=== PATIENT | female | born 1985 ===

== ENCOUNTER 2017-09-29 18:08 | Emergency (ER) | payer MEDICAID, OTHER ==
[2017-09-29 18:24] VITALS: BP 130/84; PULSE 75; RESP 20; TEMP 98.5; O2SAT 99
--- NOTE | 2017-09-29 19:57 | C.PDOC ---
History Of Present Illness 32 y/o female presents to the ED complaining of a sore throat since yesterday. Associated with voice hoarseness, pain on swallowing, and a dry cough. Denies any fever, chills, headache, or dizziness. Time Seen by Provider: 09/29/17 19:31 Chief Complaint (Nursing): ENT Problem History Per: Patient History/Exam Limitations: no limitations Onset/Duration Of Symptoms: Days (x2) Current Symptoms Are (Timing): Still Present Location Of Pain: Throat Past Medical History Reviewed: Historical Data, Nursing Documentation, Vital Signs Vital Signs: Last Vital Signs Temp 98.5 F 09/29/17 18:20 Pulse 75 09/29/17 18:20 Resp 20 09/29/17 18:20 BP 130/84 09/29/17 18:20 Pulse Ox 99 09/29/17 20:08 - Medical History PMH: Asthma Surgical History: Hernia Repair Family History: States: No Known Family Hx - Social History Hx Tobacco Use: Yes Hx Alcohol Use: Yes Hx Substance Use: No - Immunization History Hx Tetanus Toxoid Vaccination: No Hx Influenza Vaccination: No Hx Pneumococcal Vaccination: No Review Of Systems Except As Marked, All Systems Reviewed And Found Negative. Constitutional: Negative for: Fever, Chills ENT: Positive for: Throat Pain, Other (Painful swallowing) Respiratory: Positive for: Cough. Negative for: Shortness of Breath, Sputum Neurological: Negative for: Headache, Dizziness Physical Exam - Physical Exam Appears: Non-toxic, No Acute Distress Skin: Normal Color, Warm, Dry Head: Atraumatic, Normacephalic Eye(s): bilateral: Normal Inspection, PERRL, EOMI Ear(s): Bilateral: Normal Nose: Normal Oral Mucosa: Moist Throat: No Exudate, Other (mildly hyperemic pharynx, and tonsillar enlargement) Neck: Normal ROM, Supple Cardiovascular: Rhythm Regular, No Murmur Respiratory: Normal Breath Sounds, No Accessory Muscle Use, No Rhonchi, No Wheezing Neurological/Psych: Oriented x3, Normal Speech ED Course And Treatment O2 Sat by Pulse Oximetry: 99 (RA) Pulse Ox Interpretation: Normal Progress Note: Discussed w/ patient diagnosis of Laryngitis/URI. Patient is medically stable in no resp distress, speaking in full sentences. Will discharge home with rx for Tessalon Perles, Zyrtec, and Motrin. Advised to follow up with PMD/the clinic in 1-2 days Disposition Counseled Patient/Family Regarding: Diagnosis, Need For Followup, Rx Given - Disposition Referrals: [facility] [Outside] Disposition: HOME/ ROUTINE Disposition Time: 19:50 Condition: STABLE Additional Instructions: Increase PO fluids Take meds as directed Gargle with warm salt water/ Take fluids Use chloraseptic spray Return to ER if worse Prescriptions: Benzonatate [Tessalon Perles] 100 mg PO TID #20 sgl Cetirizine HCl [Zyrtec] 10 mg PO DAILY #20 capsule Ibuprofen [Motrin] 600 mg PO Q6H #20 tab Instructions: Laryngitis (DC) Forms: [employer] (Uruguayan) - POA Present On Arrival: None - Clinical Impression Clinical Impression: Laryngitis, Upper respiratory infection - PA / PRINCIPAL GIFTS OFFICER / Resident Statement MD/DO has reviewed & agrees with the documentation as recorded. - Scribe Statement The provider has reviewed the documentation as recorded by the Scribe (Jaqueline Velazquez) All medical record entries made by the Scribe were at my direction and personally dictated by me. I have reviewed the chart and agree that the record accurately reflects my personal performance of the history, physical exam, medical decision making, and the department course for this patient. I have also personally directed, reviewed, and agree with the discharge instructions and disposition.
== END 2017-09-29 20:07 | disposition home or self-care (01) ==
LOC: C.ER 18:08
DX: J04.0 Acute laryngitis (principal)

== ENCOUNTER 2017-10-30 18:22 | Emergency (ER) | payer MEDICAID, OTHER ==
[2017-10-30 18:31] VITALS: RESP 20
[2017-10-30] MEDS ORDERED: Albuterol 0.083% Inhal Sol (2.5 mg/3 mL) UD INH STA ×2 (19:07→21:01)
[2017-10-30] MEDS ORDERED: Albuterol-Ipratrop 3 mg / 0.5 (3 ml) UD IH STA (19:07)
[2017-10-30] MEDS ORDERED: Albuterol-Ipratrop 3 mg / 0.5 (3 ml) UD ONE ×2 (19:14→21:01)
[2017-10-30] MEDS ORDERED: Albuterol 0.083% Inhal Sol (2.5 mg/3 mL) UD ONE (19:15)
--- NOTE | 2017-10-30 19:38 | C.PDOC ---
History Of Present Illness 32-year-old female, presents to the emergency department with complaintsof shortness of breath and wheezing for the past week. Patient notes soreness in chest, but denies any pain or fever. Patient has a Hx of asthma, but was unable to have access to a pump at home. Time Seen by Provider: 10/30/17 18:49 Chief Complaint (Nursing): Shortness Of Breath History Per: Patient History/Exam Limitations: no limitations Onset/Duration Of Symptoms: Days Past Medical History Reviewed: Historical Data, Nursing Documentation, Vital Signs Vital Signs: Last Vital Signs Temp 97.9 F 10/30/17 21:24 Pulse 102 H 10/30/17 21:24 Resp 20 10/30/17 21:24 BP 148/92 H 10/30/17 21:24 Pulse Ox 99 10/30/17 21:24 - Medical History PMH: Asthma Surgical History: Hernia Repair Family History: States: No Known Family Hx - Social History Hx Tobacco Use: Yes Hx Alcohol Use: Yes Hx Substance Use: No - Immunization History Hx Tetanus Toxoid Vaccination: No Hx Influenza Vaccination: No Hx Pneumococcal Vaccination: No Review Of Systems Constitutional: Negative for: Fever Cardiovascular: Negative for: Chest Pain, Palpitations Respiratory: Positive for: Shortness of Breath, Wheezing Neurological: Negative for: Headache, Dizziness Physical Exam - Physical Exam Appears: Non-toxic, No Acute Distress Skin: Normal Color, Warm, Dry, No Rash Head: Normacephalic Eye(s): bilateral: PERRL Nose: Normal Oral Mucosa: Moist Neck: Normal ROM Chest: Symmetrical Cardiovascular: Rhythm Regular, No Murmur Respiratory: No Decreased Breath Sounds, No Accessory Muscle Use, Wheezing ( diffuse, expiratory) Extremity: Normal ROM, No Deformity, No Swelling Neurological/Psych: Oriented x3, Normal Speech ED Course And Treatment O2 Sat by Pulse Oximetry: 100 (RA) Pulse Ox Interpretation: Normal - Radiology CXR: Interpreted by Me CXR Interpretation: Yes: No Acute Disease Medical Decision Making Medical Decision Making: Chest XR, Prednisone, Albuterol neb x 2, Duoneb x 1, Zithromax ordered. On re- evaluation patient feels better and is stable to be d/c home with PMD follow up. Disposition - Disposition Referrals: Abhishek Frances MD [Staff Provider] - Disposition: HOME/ ROUTINE Disposition Time: 21:10 Condition: IMPROVED Additional Instructions: Follow up with PMD within 1-2 days. Return to ED if feel worse. Prescriptions: Brompheniramine/Pseudoephed/Dm [Bromfed Dm Cough 118 ml] 10 ml PO Q4 #300 ml predniSONE [predniSONE Tab] 2 tab PO DAILY #8 tab Albuterol Sulfate [Proair Hfa] 1 puff IH Q6 PRN #1 inh PRN Reason: Cough Azithromycin [Zithromax] 250 mg PO DAILY #4 tab Instructions: Acute Bronchitis, Adult (DC) Forms: [employer] (Frisian) - Clinical Impression Clinical Impression: Bronchitis - Scribe Statement The provider has reviewed the documentation as recorded by the Scribe (Ami Mojica) All medical record entries made by the Scribe were at my direction and personally dictated by me. I have reviewed the chart and agree that the record accurately reflects my personal performance of the history, physical exam, medical decision making, and the department course for this patient. I have also personally directed, reviewed, and agree with the discharge instructions and disposition.
[2017-10-30 21:25] VITALS: BP 148/92; PULSE 102; TEMP 97.9
[2017-10-31 07:24] VITALS: O2SAT 100
--- NOTE | 2017-10-31 11:22 | RAD ---
HISTORY: cough/wheezing COMPARISON: No prior. TECHNIQUE: Chest PA and lateral FINDINGS: LUNGS: The interstitial markings are slightly increased and coarsened with a few scattered peribronchial cuffing changes. Findings may represent sequela of reactive/inflammatory airway disease or viral illness. PLEURA: No significant pleural effusion identified. No pneumothorax apparent. CARDIOVASCULAR: Normal. OSSEOUS STRUCTURES: No significant abnormalities. VISUALIZED UPPER ABDOMEN: Normal. OTHER FINDINGS: None. IMPRESSION: The interstitial markings are slightly increased and coarsened with a few scattered peribronchial cuffing changes. Findings may represent sequela of reactive/inflammatory airway disease or viral illness.
== END 2017-10-30 21:32 | disposition home or self-care (01) ==
LOC: C.ER 18:22
DX: J40 Bronchitis, not specified as acute or chronic (principal)

== ENCOUNTER 2018-02-12 17:47 | Emergency (ER) | payer SELFPAY ==
[2018-02-12 18:46] VITALS: BMI 33.6
[2018-02-12 18:53] VITALS: RESP 20
[2018-02-12] MEDS ORDERED: Sodium Chloride 0.9% 1,000 ML IV ONE (19:37)
[2018-02-12 19:44] LABS: SQUAMOUS EPITHIAL < 1 /hpf (0-5); URINE BILIRUBIN NEGATIVE (NEGATIVE); URINE BLOOD NEGATIVE (NEGATIVE); URINE CLARITY Clear (Clear); URINE COLOR Yellow (YELLOW); URINE GLUCOSE (UA) NORMAL (Normal); URINE LEUKOCYTE ESTERASE NEG Leu/uL (Negative); URINE PROTEIN NEGATIVE (NEGATIVE); URINE UROBILINOGEN NORMAL mg/dL (0.2-1.0)
--- NOTE | 2018-02-12 19:55 | C.PDOC ---
History Of Present Illness 32 yo female w/o significant PMHx come in for evaluation of vaginal bleeding developed for past 15 days. Pt reports, LNMP started 01/29/18 and has been bleeding since. Pt admits, before that had menstrual period was on 12/23/17 and also was bleeding for 3 weeks with one week of non-bleeding period. Pt admits, noted to be irregular for past few months. Pt reports, for past few days was also feeling dizzy, lightheaded. Otherwise, pt denies use BCP, denies fever, chills, headache, sore throat, CP, SOB, palpitation, abd. pain, N/V/D, back pain , denies UTI sx. Pt denies previous [employer] ds. Ambulate to Ed for evaluation, not in any apparent distress. Time Seen by Provider: 02/12/18 19:22 Chief Complaint (Nursing): Female Genitourinary History Per: Patient Past Medical History Reviewed: Historical Data, Nursing Documentation, Vital Signs Vital Signs: Last Vital Signs Temp 98.1 F 02/12/18 18:47 Pulse 91 H 02/12/18 18:47 Resp 20 02/12/18 18:47 BP 125/85 02/12/18 18:47 Pulse Ox 99 02/12/18 19:56 - Medical History PMH: Asthma Surgical History: Hernia Repair Family History: States: No Known Family Hx - Social History Hx Tobacco Use: Yes Hx Alcohol Use: No Hx Substance Use: No - Immunization History Hx Tetanus Toxoid Vaccination: No Hx Influenza Vaccination: No Hx Pneumococcal Vaccination: No Review Of Systems Except As Marked, All Systems Reviewed And Found Negative. Constitutional: Negative for: Fever, Chills Eyes: Negative for: Vision Change ENT: Negative for: Throat Pain Cardiovascular: Positive for: Light Headedness. Negative for: Chest Pain, Palpitations Respiratory: Negative for: Cough, Shortness of Breath, Wheezing Gastrointestinal: Negative for: Nausea, Vomiting, Abdominal Pain, Diarrhea Genitourinary: Positive for: Vaginal Bleeding. Negative for: Dysuria Neurological: Positive for: Dizziness. Negative for: Weakness, Numbness, Altered Mental Status, Headache Physical Exam - Physical Exam Appears: Well, Non-toxic, No Acute Distress Skin: Normal Color, Warm, Dry, No Rash Head: Atraumatic, Normacephalic Eye(s): bilateral: PERRL Nose: No Flaring, No Discharge Oral Mucosa: Moist Throat: No Erythema, No Drooling Neck: Normal ROM, Trachea Midline, Supple Cardiovascular: Rhythm Regular, No Murmur, No JVD, Other ((-) carotid bruits B/L ) Respiratory: No Decreased Breath Sounds, No Accessory Muscle Use, No Stridor, No Wheezing Gastrointestinal/Abdominal: Soft, No Tenderness, No Distention, No Guarding, No Rebound Back: No CVA Tenderness Extremity: Normal ROM, No Deformity, No Swelling Neurological/Psych: Oriented x3, Normal Speech ED Course And Treatment - Laboratory Results Result Diagrams: 02/12/18 20:28 02/12/18 20:28 Lab Interpretation: No Acute Changes Urine POC: Negative O2 Sat by Pulse Oximetry: 99 Pulse Ox Interpretation: Normal - CT Scan/US Transvaginal US Other Rad Studies (CT/US): Interpreted By Me, Read By Radiologist CT/US Interpretation: small B/L ovarian cysts. no acute findings Progress Note: On re-eval, pt is afebrile, hemodynamicaly stable. NOn-toxic. [place] Po well in ED. Ambulatory in ED with stable gait. PulsEOx 99% RA. ENT: no acute findings. uvula midline, no edmea. Neck: Supple, (-) JVD, (-) carotid bruits B/L. Lungs: CTA B/L, BS equal B/L. Abd: benign, (-) guarding, ( -) rebound. back: (-) CVA tenderness. neuorlogicaly intact. Blood work review and appeas without acute abnormlaities, mild lekocytosis, nos. NO sign of dehydration, no anemia. US results review- no acute abnormalities. Pt has clinical findings c/w DUB. Pt advised. REf. to follow up with PMD, [employer] in 2 days for re-eval. return to ED if any worsening or new changes. Disposition Counseled Patient/Family Regarding: Studies Performed, Diagnosis, Need For Followup - Disposition Referrals: [facility] [Outside] [facility] [Outside] Disposition: HOME/ ROUTINE Disposition Time: 21:48 Condition: STABLE Additional Instructions: Encourage fluids Follow up with PMD, [employer] in 2-3 days for re-evaluation. Return to ED if nay worsening or new changes. Instructions: Heavy Periods Forms: [employer] (Namibian) - Clinical Impression Clinical Impression: DUB (dysfunctional uterine bleeding)
[2018-02-12 20:32] LABS: BASO # 0.1 K/uL (0.0-0.2); BASO % 0.4 % (0.0-2.0); EOS # 0.1 K/uL (0.0-0.7); EOS % 0.8 % (0.0-4.0); HEMOGLOBIN 12.1 g/dL (11.0-16.0); LYMPH % 20.9 % (20.0-40.0); MEAN CELL VOLUME 87.2 fL (81.0-99.0); MEAN CORPUSCULAR HEMOGLOBIN 29.7 pg (27.0-31.0); MEAN PLATELET VOLUME 8.8 fL (7.2-11.7); MONO # 0.7 K/uL (0.0-0.8); MONO % 4.9 % (0.0-10.0); NEUT # 10.4 K/uL (1.8-7.0); RBC 4.09 Mil/uL (3.80-5.20); RED CELL DISTRIBUTION WIDTH 13.8 % (11.5-14.5); WHITE BLOOD COUNT 14.2 K/uL (4.8-10.8)
[2018-02-12 20:41] LABS: PROTHROMBIN TIME 10.5 SECONDS (9.7-12.2)
[2018-02-12 20:45] LABS: ALB/GLOB RATIO 1.3 (1.0-2.1); ALBUMIN 4.4 g/dL (3.5-5.0); ALT/SGPT 45 U/L (9-52); AST/SGOT 30 U/L (14-36); BLOOD UREA NITROGEN 18 mg/dL (7-17); CALCIUM 9.5 mg/dl (8.6-10.4); GFR AFRICAN-AMERICAN > 60; GFR NON-AFRICAN AMERICAN > 60
[2018-02-12 22:12] VITALS: BP 99/60; PULSE 74; TEMP 97.9; O2SAT 98
--- NOTE | 2018-02-13 20:53 | US ---
Date of service: 02/12/2018 HISTORY: DUB, pain COMPARISON: None available. TECHNIQUE: Transabdominal and endovaginal ultrasound examination of the pelvis was obtained. FINDINGS: UTERUS: Measures 6.6 x 3.4 x 4.4 cm. Normal in size and appearance. No fibroid or other mass lesion seen. There are 2 cystic lesions seen at the uterine cervix with the largest cyst measures 1.7 centimeter may represent nabothian cyst. ENDOMETRIUM: Measures 9.1 mm in diameter. This suspicious for endometrial polyp measures 0.5 x 0.5 x 0.6 centimeter. CERVIX: No cervical abnormality identified. RIGHT OVARY: Measures 4 x 2.1 x 3.85 cm. No solid mass. Normal flow. There are 2 cysts lesions seen at the right adnexa with the largest cyst measures 3.4 x 1 x 2.8 centimeter. LEFT OVARY: Measures 3.4 x 1.6 x 3.1 cm. No solid mass. Normal flow. There is a cyst seen at the left adnexa measures 1.6 x 0.8 x 1.3 centimeter. FREE FLUID: No significant free fluid noted. OTHER FINDINGS: None. IMPRESSION: Suspicious for endometrial polyp measures 0.5 centimeter. Two cervical cysts. Bilateral adnexal cysts larger on the right, the largest cyst measures 3.4 centimeter. Follow-up reassessment is suggested. Preliminary report was submitted by virtual Radiology.
== END 2018-02-12 22:11 | disposition home or self-care (01) ==
LOC: C.ER 17:47
DX: N93.8 Other specified abnormal uterine and vaginal bleeding (principal); Z72.0 Tobacco use
CPT/HCPCS: 76830; 76856; 80053; 81001; 85025; 85610; 85730; 87086; 96360; 99285; J7030

== ENCOUNTER 2018-05-17 02:47 | Emergency (ER) | payer OTHER ==
[2018-05-17 02:49] VITALS: BMI 33.6
[2018-05-17] MEDS ORDERED: Albuterol-Ipratrop 3 mg / 0.5 (3 ml) UD INH STA ×2 (03:14→05:07)
--- NOTE | 2018-05-17 03:19 | C.PDOC ---
History Of Present Illness 33 year old female presents to the ED complaining of dry cough for 2 weeks and for the last 3 days with subjective fever, myalgias, headache, sore throat, and difficulty breathing. Reports taking Ibuprofen with minimal relief. Denies taking flu vaccination or smoking history.. Denies any ear pain, nasal congestion, n/v/d. no intubations, max pf unknown. Time Seen by Provider: 05/17/18 02:59 Chief Complaint (Nursing): Flu-like Symptoms History Per: Patient History/Exam Limitations: no limitations Onset/Duration Of Symptoms: Days (2 weeks ) Location Of Pain: Throat, Diffuse Myalgias, Headache Sick Contacts (Context): None Associated Symptoms: Fever, Sore Throat, Cough, Myalgias. denies: Nasal Congestion, Nausea, Vomiting, Diarrhea Ear Symptoms: Bilateral: None Recent travel outside of the [place]: No Past Medical History Reviewed: Historical Data, Nursing Documentation, Vital Signs Vital Signs: Last Vital Signs Temp 97.6 F 05/17/18 02:56 Pulse 110 H 05/17/18 02:56 Resp 18 05/17/18 02:56 BP 153/95 H 05/17/18 02:56 Pulse Ox 98 05/17/18 02:56 - Medical History PMH: Asthma Surgical History: Hernia Repair Family History: States: No Known Family Hx - Social History Hx Tobacco Use: Yes Hx Alcohol Use: Yes Hx Substance Use: No - Immunization History Hx Tetanus Toxoid Vaccination: No Hx Influenza Vaccination: No Hx Pneumococcal Vaccination: No Review Of Systems Constitutional: Positive for: Fever, Chills Eyes: Positive for: Pain ENT: Positive for: Throat Pain. Negative for: Ear Pain, Nose Congestion, Mouth Pain, Throat Swelling Cardiovascular: Negative for: Chest Pain, Palpitations Respiratory: Positive for: Cough, Shortness of Breath, Wheezing Gastrointestinal: Negative for: Nausea, Vomiting, Abdominal Pain, Diarrhea Skin: Negative for: Rash Neurological: Positive for: Headache. Negative for: Weakness, Numbness Psych: Negative for: Anxiety Physical Exam - Physical Exam Appears: Non-toxic, Other (appears uncomfortable) Skin: Warm, Dry, No Rash Head: Atraumatic, Normacephalic Eye(s): bilateral: Normal Inspection Ear(s): Bilateral: Normal Nose: No Discharge Oral Mucosa: Moist Throat: No Erythema, Other (white patch to right tonsil, midly enlarged) Neck: Normal ROM, Supple Lymphatic: Adenopathy (submandibular adenopathy) Chest: Symmetrical Cardiovascular: Rhythm Regular, No Murmur Respiratory: Normal Breath Sounds, No Decreased Breath Sounds, No Rales, No Rhonchi, Wheezing (scattered expiratory), Other (dry hacking cough) Gastrointestinal/Abdominal: Bowel Sounds, Soft, No Tenderness Back: No CVA Tenderness Extremity: Normal ROM Neurological/Psych: Oriented x3, Normal Speech Gait: Steady ED Course And Treatment - Laboratory Results Result Diagrams: 05/17/18 05:41 05/17/18 05:41 O2 Sat by Pulse Oximetry: 98 (RA) Pulse Ox Interpretation: Normal Medical Decision Making Medical Decision Making: Plan - CXR - Tylenol 975 mg PO - Rapid Strep Test, influenza - Nebulizer Treatment iv hydration , re-eval 0504 cxr reviewed, right sided pna noted, bc and labs ordered, antibiotics ordered; pt still wheezing. 2nd neb ordered. pf 260 before first neb tx. [address] Stevens, will admit to his service. Disposition Discussed With : Hayes Stevens Doctor Will See Patient In The: Hospital - Disposition Disposition: HOSPITALIZED Disposition Time: 05:21 Condition: STABLE - Clinical Impression Clinical Impression: Pneumonia, Acute asthma exacerbation - PA / AOC AADC OPERATIONS STAFF OFFICER / Resident Statement MD/DO has reviewed & agrees with the documentation as recorded. - Scribe Statement The provider has reviewed the documentation as recorded by the Scribe Glenys Guillermo All medical record entries made by the Scribe were at my direction and personally dictated by me. I have reviewed the chart and agree that the record accurately reflects my personal performance of the history, physical exam, medical decision making, and the department course for this patient. I have also personally directed, reviewed, and agree with the discharge instructions and disposition.
[2018-05-17] MEDS ORDERED: Sodium Chloride 0.9% 1,000 ML IV ONE (03:32)
[2018-05-17] MEDS ORDERED: Albuterol-Ipratrop 3 mg / 0.5 (3 ml) UD ONE ×3 (03:49→08:29)
[2018-05-17 04:17] LABS: INFLUENZA A B NEGATIVE FOR FLU A/B (NEGATIVE)
[2018-05-17] MEDS ORDERED: Azithromycin 500mg/250ML NS 500 MG/250 ML BAG IV STA (05:05)
[2018-05-17] MEDS ORDERED: cefTRIAXone IV 1 gm in Dextros 50 ML IV STA (05:05)
[2018-05-17] MEDS ORDERED: cefTRIAXone 1 gm 1 GM/100 ML BAG IVPB ONE (05:33)
[2018-05-17] MEDS ORDERED: Azithromycin 500mg/250ML NS 500 MG/250 ML BAG IVPB ONE (05:33)
[2018-05-17 05:46] LABS: BASO % 0.3 % (0.0-2.0); EOS % 0.1 % (0.0-4.0); HEMOGLOBIN 10.4 g/dL (11.0-16.0); LYMPH # 1.1 K/uL (1.0-4.3); LYMPH % 12.2 % (20.0-40.0); MEAN CORPUSCULAR HEMOGLOBIN 26.9 pg (27.0-31.0); MEAN CORPUSCULAR HGB CONC 32.4 g/dL (33.0-37.0); MEAN PLATELET VOLUME 8.9 fL (7.2-11.7); MONO # 0.5 K/uL (0.0-0.8); MONO % 5.6 % (0.0-10.0); NEUT # 7.5 K/uL (1.8-7.0); NEUT % 81.8 % (50.0-75.0); RBC 3.85 Mil/uL (3.80-5.20); RED CELL DISTRIBUTION WIDTH 14.6 % (11.5-14.5); WHITE BLOOD COUNT 9.2 K/uL (4.8-10.8)
[2018-05-17 06:15] LABS: ALB/GLOB RATIO 1.1 (1.0-2.1); ALBUMIN 3.5 g/dL (3.5-5.0); ALT/SGPT 26 U/L (9-52); AST/SGOT 21 U/L (14-36); BLOOD UREA NITROGEN 10 mg/dL (7-17); CALCIUM 7.8 mg/dl (8.6-10.4); GFR NON-AFRICAN AMERICAN > 60
[2018-05-17] MEDS ORDERED: Albuterol HFA 90 mcg/actuation (8 g) INH STA (08:14)
--- NOTE | 2018-05-17 08:30 | CP.PCM.HP ---
History of Present Illness - History of Present Illness History of Present Illness: H&P for hospitalist service CC: cough and shortness of breath HPI: 33 year old female with PMHx of asthma presents to ED complaining of shortness of breath that began 3 days ago and wheezing that began last night. Patient also reports a dry cough for the past 2 weeks. Cough worsened in the last 3 days. Patient states she tried advil, theraflu, nyquil and her albuterol inhaler at home without relief. Associated symptoms include subjective fever, diaphoresis, headache, lightheadedness, and sore throat. Patient denies PMHx: Asthma PSHx: hernia repair at 10 years old Meds: albuterol inhaler Allergies: loratadine-itching FamHx: father-asthma; mother- HTN, hyperthyroid, Crohn's disease SocHx: Smokes 1 cigarette per month, drinks wine socially, denies drugs. 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 PMD: none Review of Systems: -Gen: + fever, No chills, + headache, No lethargy, No weakness. -HEENT: No dizziness, No change in vision, No change in hearing, + sore throat, No dysphagia, No nasal congestion, No mucous. -Cardio: No chest pain, No palpitations, No lower extremity edema, No orthopnea. -Resp: + cough, +dyspnea, No hemoptysis, + wheezing, No pain on inspiration. -GI: No abdominal pain, No nausea/vomiting, No diarrhea/constipation, No hematochezia, No hematemesis. -: No dysuria, No urinary freq, No incontinence, No hematuria, No change in urinary stream. -MSK: No back pain, No muscle weakness, No radiating pain. -Skin: No itching, No rash, No lesions. -Neuro: No confusion, No numbness, No tingling, No focal weakness, No radicular pain, No syncope. -Psych: No anxiety, No depression, No H/I, No S/I, No hallucinations. Present on Admission - Present on Admission Any Indicators Present on Admission: No Past Patient History - Past Social History Smoking Status: Light Smoker < 10 Cigarettes Daily - PULMONARY Hx Asthma: Yes - PSYCHIATRIC Hx Substance Use: No - SURGICAL HISTORY Hx Surgeries: Yes Hx Herniorrhaphy: Yes - ANESTHESIA Hx Anesthesia: Yes Hx Anesthesia Reactions: No Meds Allergies/Adverse Reactions: Allergies Allergy/AdvReac Type Severity Reaction Status Date / Time loratadine [From Claritin] Allergy RASH Verified 05/17/18 02:58 nut - unspecified Allergy SWELLING Verified 05/17/18 02:58 shellfish derived Allergy ANAPHYLAXIS Verified 05/17/18 02:58 berries Allergy SWELLING Uncoded 05/17/18 02:58 Physical Exam - Constitutional Appears: No Acute Distress - Head Exam Head Exam: ATRAUMATIC, NORMOCEPHALIC - Eye Exam Eye Exam: EOMI, Normal appearance, PERRL - ENT Exam ENT Exam: Mucous Membranes Moist - Neck Exam Neck exam: Positive for: Full Rom, Normal Inspection - Respiratory Exam Respiratory Exam: Rales (R base). absent: Accessory Muscle Use, Clear to Auscultation Bilateral, Rhonchi, Wheezes, Respiratory Distress - Cardiovascular Exam Cardiovascular Exam: RRR, +S1, +S2 - GI/Abdominal Exam GI & Abdominal Exam: Normal Bowel Sounds, Soft. absent: Guarding, Rebound, Tenderness - Extremities Exam Extremities exam: Positive for: full ROM, normal capillary refill, normal inspection, pedal pulses present. Negative for: joint swelling, pedal edema, tenderness - Neurological Exam Neurological exam: Alert, CN II-XII Intact, Oriented x3 - Psychiatric Exam Psychiatric exam: Normal Affect, Normal Mood - Skin Skin Exam: Diaphoretic, Intact, Normal Color, Warm Results - Vital Signs Recent Vital Signs: Last Vital Signs Temp 98.6 F 05/17/18 06:46 Pulse 113 H 05/17/18 06:46 Resp 20 05/17/18 06:46 BP 125/83 05/17/18 06:46 Pulse Ox 98 05/17/18 06:49 - Labs Result Diagrams: 05/17/18 05:41 05/17/18 05:41 Labs: Laboratory Results - last 24 hr 05/17/18 05/17/18 05/17/18 04:06 05:41 05:41 WBC 9.2 RBC 3.85 Hgb 10.4 L Hct 31.9 L MCV 83.0 D MCH 26.9 L MCHC 32.4 L RDW 14.6 H Plt Count 256 MPV 8.9 Neut % (Auto) 81.8 H Lymph % (Auto) 12.2 L [place] % (Auto) 5.6 Eos % (Auto) 0.1 Baso % (Auto) 0.3 Neut # (Auto) 7.5 H Lymph # (Auto) 1.1 [place] # (Auto) 0.5 Eos # (Auto) 0.0 Baso # (Auto) 0.0 Sodium 136 Potassium 3.7 Chloride 107 Carbon Dioxide 21 L Anion Gap 12 BUN 10 Creatinine 0.5 L Est GFR ( Amer) > 60 Est GFR (Non-Af Amer) > 60 Random Glucose 113 H Calcium 7.8 L Total Bilirubin 0.2 AST 21 ALT 26 Alkaline Phosphatase 62 Total Protein 6.5 Albumin 3.5 D Globulin 3.1 Albumin/Globulin Ratio 1.1 Influenza Typ A,B (EIA) Negative for flu a/b Grp A Beta Strep Ag Negative Assessment & Plan - Assessment and Plan (Free Text) Plan: 32 year old female with PMHx of asthma admitted for RML pneumonia. Community acquired pneumonia -CXR: RML infiltrate -PSI score=31 based on age, therefore 0.6% mortality risk. -Patient may be treated outpatient.
[2018-05-17 09:14] VITALS: BP 127/84; PULSE 106; RESP 16; TEMP 98.9; O2SAT 99
--- NOTE | 2018-05-17 09:43 | RAD ---
Date of service: 05/17/2018 HISTORY: cough wheezing COMPARISON: No prior. TECHNIQUE: Chest PA and lateral FINDINGS: LUNGS: Dense focal opacification seen projecting over the right heart border on the frontal view extending into the right mid lung zone concerning for underlying infiltrate. Correlation with chest CT may be helpful. In addition, post treatment interval follow-up exam maybe helpful to ensure resolution of infiltrate and to exclude additional etiologies such as underlying lesion. PLEURA: No significant pleural effusion identified. No pneumothorax apparent. CARDIOVASCULAR: No aortic atherosclerotic calcification present. Normal cardiac size. OSSEOUS STRUCTURES: No significant abnormalities. VISUALIZED UPPER ABDOMEN: Normal. OTHER FINDINGS: None. IMPRESSION: Dense focal opacification seen projecting over the right heart border on the frontal view extending into the right mid lung zone concerning for underlying infiltrate. Correlation with chest CT may be helpful. In addition, post treatment interval follow-up exam maybe helpful to ensure resolution of infiltrate and to exclude additional etiologies such as underlying lesion. This case was put into the PA review folder for follow-up.
--- NOTE | 2018-05-17 11:56 | CP.PCM.DIS ---
Provider - Provider Date of Admission: 05/17/18 05:20 Attending physician: Hayes Stevens MD Primary care physician: none Consults: none Time Spent in preparation of Discharge (in minutes): 30 Diagnosis - Discharge Diagnosis (1) Pneumonia Status: Acute Hospital Course - Lab Results Lab Results: Most Recent Lab Values WBC 9.2 K/uL (4.8-10.8) 05/17/18 05:41 RBC 3.85 Mil/uL (3.80-5.20) 05/17/18 05:41 Hgb 10.4 g/dL (11.0-16.0) L 05/17/18 05:41 Hct 31.9 % (34.0-47.0) L 05/17/18 05:41 MCV 83.0 fL (81.0-99.0) D 05/17/18 05:41 MCH 26.9 pg (27.0-31.0) L 05/17/18 05:41 MCHC 32.4 g/dL (33.0-37.0) L 05/17/18 05:41 RDW 14.6 % (11.5-14.5) H 05/17/18 05:41 Plt Count 256 K/uL (130-400) 05/17/18 05:41 MPV 8.9 fL (7.2-11.7) 05/17/18 05:41 Neut % (Auto) 81.8 % (50.0-75.0) H 05/17/18 05:41 Lymph % (Auto) 12.2 % (20.0-40.0) L 05/17/18 05:41 [place] % (Auto) 5.6 % (0.0-10.0) 05/17/18 05:41 Eos % (Auto) 0.1 % (0.0-4.0) 05/17/18 05:41 Baso % (Auto) 0.3 % (0.0-2.0) 05/17/18 05:41 Neut # (Auto) 7.5 K/uL (1.8-7.0) H 05/17/18 05:41 Lymph # (Auto) 1.1 K/uL (1.0-4.3) 05/17/18 05:41 [place] # (Auto) 0.5 K/uL (0.0-0.8) 05/17/18 05:41 Eos # (Auto) 0.0 K/uL (0.0-0.7) 05/17/18 05:41 Baso # (Auto) 0.0 K/uL (0.0-0.2) 05/17/18 05:41 Sodium 136 mmol/L (132-148) 05/17/18 05:41 Potassium 3.7 mmol/L (3.6-5.2) 05/17/18 05:41 Chloride 107 mmol/L (98-107) 05/17/18 05:41 Carbon Dioxide 21 mmol/L (22-30) L 05/17/18 05:41 Anion Gap 12 (10-20) 05/17/18 05:41 BUN 10 mg/dL (7-17) 05/17/18 05:41 Creatinine 0.5 mg/dL (0.7-1.2) L 05/17/18 05:41 Est GFR ( Amer) > 60 05/17/18 05:41 Est GFR (Non-Af Amer) > 60 05/17/18 05:41 Random Glucose 113 mg/dL (65-105) H 05/17/18 05:41 Calcium 7.8 mg/dl (8.6-10.4) L 05/17/18 05:41 Total Bilirubin 0.2 mg/dL (0.2-1.3) 05/17/18 05:41 AST 21 U/L (14-36) 05/17/18 05:41 ALT 26 U/L (9-52) 05/17/18 05:41 Alkaline Phosphatase 62 U/L (38-126) 05/17/18 05:41 Total Protein 6.5 g/dL (6.3-8.3) 05/17/18 05:41 Albumin 3.5 g/dL (3.5-5.0) D 05/17/18 05:41 Globulin 3.1 gm/dL (2.2-3.9) 05/17/18 05:41 Albumin/Globulin Ratio 1.1 (1.0-2.1) 05/17/18 05:41 Influenza Typ A,B (EIA) Negative for flu a/b (NEGATIVE) 05/17/18 04:06 Grp A Beta Strep Ag Negative (NEGATIVE) 05/17/18 04:06 - Hospital Course Hospital Course: On admission: HPI: 33 year old female with PMHx of asthma presents to ED complaining of shortness of breath that began 3 days ago and wheezing that began last night. Patient also reports a dry cough for the past 2 weeks. Cough worsened in the last 3 days. Patient states she tried advil, theraflu, nyquil and her albuterol inhaler at home without relief. Associated symptoms include subjective fever, diaphoresis, headache, lightheadedness, and sore throat. Patient denies Hospital Course: A CXR showed RML infiltrate. Patient received nebulizer treatment, IV fluids and ceftriaxone and azithromycin in the ED. Patient's PSI score was calculated as 31 based on age, therefore 0.6% mortality risk. Appropriate to treat patient as an outpatient. Discharge instructions: REST, INCREASE FLUID INTAKE, TAKE PROBIOTIC, FOLLOW UP INSTRUCTED You are to follow up with the Dr. Griggs at [facility] within the next 5 days. Call [phone] to make an appointment. You are to take the following medication: Doxycycline 100mg Take BID from05/17-05/19 Takne once daily from 05/20 -05/28 Please take a probiotic with lunch daily for the next 41 days. Take tylenol Extra Strength for muscle aches/fevers. Return to ED for worsening or new symptoms Discharge Exam - Head Exam Head Exam: ATRAUMATIC, NORMOCEPHALIC Discharge Plan - Follow Up Plan Condition: STABLE Disposition: HOME/ ROUTINE Instructions: Pneumonia in Adults, Asthma, Adult (DC) Additional Instructions: REST, INCREASE FLUID INTAKE, TAKE PROBIOTIC, FOLLOW UP INSTRUCTED You are to follow up with the Dr. Griggs at [facility] within the next 5 days. Call [phone] to make an appointment. You are to take the following medication: Doxycycline 100mg Take BID from05/17-05/19 Takne once daily from 05/20 -05/28 Please take a probiotic with lunch daily for the next 41 days. Take tylenol Extra Strength for muscle aches/fevers Referrals: [facility] [Provider Group]
== END 2018-05-17 09:13 | disposition home or self-care (01) ==
LOC: C.ER 02:47 → C.9E 05:20 → UNDOADMOB 05:20 → C.9E 07:09 → C.5S 07:09 → C.9E 09:07 → UNDODISOB 09:13 → C.9E 09:13 → C.ER 09:13
DX: J18.9 Pneumonia, unspecified organism (principal); J45.901 Unspecified asthma with (acute) exacerbation
CPT/HCPCS: 71046; 80053; 85025; 87040; 87070; 87430; 87804; 94640; 96361; 96374; 96375; 99285; J0456; J0696; J7030

== ENCOUNTER 2018-05-18 08:34 | Emergency (ER) | payer OTHER ==
[2018-05-18 08:34] VITALS: BMI 33.6
[2018-05-18 08:46] VITALS: O2SAT 98
[2018-05-18] MEDS ORDERED: Albuterol 0.083% Inhal Sol (2.5 mg/3 mL) UD INH STA (09:31)
--- NOTE | 2018-05-18 09:37 | C.PDOC ---
History Of Present Illness 33 y/o female presents to the ED complaining of a cough since last night. Associated with difficulty sleeping, patient states I could not lay flat without coughing. Of note patient was recently admitted for pneumonia and asthma exacerbation, and discharged home 05/17. Patient reports some relief with nebulizer but does not have machine at home. States he did not receive any rx for prednisone. Denies any fever, chills, chest pain, numbness, tingling, or leg swelling/pain. Time Seen by Provider: 05/18/18 09:21 Chief Complaint (Nursing): Shortness Of Breath History Per: Patient History/Exam Limitations: no limitations Onset/Duration Of Symptoms: Days Current Symptoms Are (Timing): Still Present Associated Symptoms: Cough Past Medical History Reviewed: Historical Data, Nursing Documentation, Vital Signs Vital Signs: Last Vital Signs Temp 98.4 F 05/18/18 08:41 Pulse Resp 104 H 05/18/18 08:41 BP 123/73 05/18/18 08:41 Pulse Ox 98 05/18/18 08:41 - Medical History PMH: Asthma Surgical History: Hernia Repair Family History: States: No Known Family Hx - Social History Hx Tobacco Use: Yes Hx Alcohol Use: Yes Hx Substance Use: No - Immunization History Hx Tetanus Toxoid Vaccination: No Hx Influenza Vaccination: No Hx Pneumococcal Vaccination: No Review Of Systems Except As Marked, All Systems Reviewed And Found Negative. Constitutional: Negative for: Fever, Chills Cardiovascular: Negative for: Chest Pain Respiratory: Positive for: Cough, Shortness of Breath. Negative for: Hemoptysis Gastrointestinal: Negative for: Nausea, Vomiting, Diarrhea Musculoskeletal: Negative for: Leg Pain (or swelling) Neurological: Negative for: Weakness, Numbness Physical Exam - Physical Exam Appears: Non-toxic, No Acute Distress Skin: Warm, Dry Head: Atraumatic, Normacephalic Eye(s): bilateral: Normal Inspection, PERRL, EOMI Oral Mucosa: Moist Neck: Normal ROM Chest: Symmetrical Cardiovascular: Rhythm Regular, No Murmur Respiratory: No Rales, No Rhonchi, Wheezing (occasional expiratory wheezing), Other (CTA bilaterally) Gastrointestinal/Abdominal: Soft, No Tenderness, No Distention Extremity: Bilateral: Atraumatic, Normal Color And Temperature, Normal ROM Pulses: Left Dorsalis Pedis: Normal, Right Dorsalis Pedis: Normal Neurological/Psych: Oriented x3, Normal Speech ED Course And Treatment ECG: Interpreted By Me ECG Rhythm: Sinus Rhythm ECG Interpretation: Normal Rate From EC O2 Sat by Pulse Oximetry: 98 (RA) Pulse Ox Interpretation: Normal Progress - Re-Evaluation Re-evaluation Note: 05/18/18 10:49 FEELS BETTER NARD - Data Reviewed Data Reviewed: Old records Medical Decision Making Medical Decision Making: Impression: 33 yo female with cough, difficulty sleeping Plan: --EKG --Prednisone 60 mg PO --Tessalon perles 200 mg PO --Albuterol nebulizer --Reassess Disposition Counseled Patient/Family Regarding: Diagnosis, Need For Followup - Disposition Referrals: YOUR,PMD [Other] Disposition: HOME/ ROUTINE Disposition Time: 10:49 Condition: IMPROVED Prescriptions: Acetaminophen [Tylenol Extra Strength] 2 tab PO Q6 #30 tablet Albuterol 0.083% [Albuterol Sulfate 3 Ml] 3 ml IH Q4 #30 neb Benzonatate [Tessalon Perles] 200 mg PO TID PRN #15 sgl PRN Reason: Cough Ibuprofen [Motrin] 600 mg PO Q6 #30 tab predniSONE [Prednisone] 60 mg PO DAILY #12 tab Instructions: Asthma, Adult (DC) Forms: [employer] (Belizean), Work Excuse - Clinical Impression Clinical Impression: Acute asthma exacerbation - Scribe Statement The provider has reviewed the documentation as recorded by the Dianibnan Velazquez Provider Attestation: All medical record entries made by the Scribe were at my direction and personally dictated by me. I have reviewed the chart and agree that the record accurately reflects my personal performance of the history, physical exam, medical decision making, and the department course for this patient. I have also personally directed, reviewed, and agree with the discharge instructions and disposition.
[2018-05-18] MEDS ORDERED: Albuterol 0.042% Inhal Sol (1.25 mg/3 mL) UD ONE ×3 (09:47→09:48)
[2018-05-18] MEDS ORDERED: Albuterol 0.083% Inhal Sol (2.5 mg/3 mL) UD ONE (09:49)
[2018-05-18 10:58] VITALS: BP 122/79; PULSE 98; RESP 17; TEMP 99.4
--- NOTE | 2018-05-19 12:16 | CARD ---
APPROVED REPORT Date of service: 05/18/2018 EKG Measurement Heart [id number] <Conclusion> Normal sinus rhythm Normal ECG
== END 2018-05-18 11:05 | disposition home or self-care (01) ==
LOC: C.ER 08:34
DX: J45.901 Unspecified asthma with (acute) exacerbation (principal)

== ENCOUNTER 2018-06-12 14:23 | Emergency (ER) | payer OTHER ==
[2018-06-12 14:23] VITALS: BMI 33.6
[2018-06-12 14:28] VITALS: BP 130/82; PULSE 89; TEMP 98.1; O2SAT 96
[2018-06-12 14:58] LABS: HCG,QUALITATIVE URINE NEGATIVE (NEGATIVE)
[2018-06-12 15:32] LABS: SQUAMOUS EPITHIAL 3 /hpf (0-5); URINE BILIRUBIN NEGATIVE (NEGATIVE); URINE BLOOD NEGATIVE (NEGATIVE); URINE CLARITY Clear (Clear); URINE COLOR Amber (YELLOW); URINE GLUCOSE (UA) NORMAL (Normal); URINE LEUKOCYTE ESTERASE NEG Leu/uL (Negative); URINE PROTEIN NEGATIVE (NEGATIVE)
[2018-06-12 15:39] LABS: URINE BACTERIA FEW (<OCC)
--- NOTE | 2018-06-12 15:56 | C.PDOC ---
History Of Present Illness 33 year old female presents to the emergency department with complaints of dysuria associated with urinary frequency and suprapubic pain for the last two days. Patient denies fever, back pain, diarrhea, hematuria, or trauma. Time Seen by Provider: 06/12/18 14:33 Chief Complaint (Nursing): Female Genitourinary History Per: Patient Onset/Duration Of Symptoms: Days (2) Current Symptoms Are (Timing): Still Present Quality Of Discomfort: "Pain" Associated Symptoms: Urinary Symptoms, Other (abdominal pain). denies: Fever, Diarrhea, Back Pain Past Medical History Reviewed: Historical Data, Nursing Documentation, Vital Signs Vital Signs: Last Vital Signs Temp 98.1 F 06/12/18 14:25 Pulse 89 06/12/18 14:25 Resp 18 06/12/18 14:25 BP 130/82 06/12/18 14:25 Pulse Ox 96 06/12/18 14:25 - Medical History PMH: Asthma Surgical History: Hernia Repair Family History: States: No Known Family Hx - Social History Hx Tobacco Use: Yes Hx Alcohol Use: Yes Hx Substance Use: No - Immunization History Hx Tetanus Toxoid Vaccination: No Hx Influenza Vaccination: No Hx Pneumococcal Vaccination: No Review Of Systems Except As Marked, All Systems Reviewed And Found Negative. Constitutional: Negative for: Fever Gastrointestinal: Positive for: Abdominal Pain (suprapubic). Negative for: Diarrhea Genitourinary: Positive for: Dysuria, Frequency. Negative for: Hematuria Musculoskeletal: Negative for: Back Pain Physical Exam - Physical Exam Appears: Well, Non-toxic, No Acute Distress Skin: Normal Color, Warm, Dry Head: Atraumatic, Normacephalic Eye(s): bilateral: Normal Inspection, PERRL, EOMI Nose: Normal Neck: Normal, Supple Chest: Symmetrical, No Tenderness Cardiovascular: Rhythm Regular, No Murmur Respiratory: No Rales, No Rhonchi, No Wheezing Gastrointestinal/Abdominal: Soft, No Tenderness, No Guarding, No Rebound Extremity: Normal ROM Neurological/Psych: Oriented x3, Normal Speech, Normal Cognition ED Course And Treatment O2 Sat by Pulse Oximetry: 96 (RA) Pulse Ox Interpretation: Normal Progress Note: Plan: Cipro 500mg PO. Pyridium 200mg PO. Urine Culture. HCG Qualitative Urine. Urinalysis Disposition - Disposition Referrals: [facility] [Outside] Disposition: HOME/ ROUTINE Disposition Time: 15:54 Condition: STABLE Additional Instructions: Follow up with the medical doctor within 1-2 days. Return if worsened. Prescriptions: Ciprofloxacin [Cipro] 1 tab PO BID #14 tab Phenazopyridine HCl [Pyridium] 200 mg PO TID #7 tablet Instructions: Urinary Tract Infections in Adults Forms: [facility] ([place]an) - Clinical Impression Clinical Impression: UTI (urinary tract infection) - PA / CUFF RUNNER / Resident Statement MD/DO has reviewed & agrees with the documentation as recorded. - Scribe Statement The provider has reviewed the documentation as recorded by the Scribe (William Ward) All medical record entries made by the Scribe were at my direction and personally dictated by me. I have reviewed the chart and agree that the record accurately reflects my personal performance of the history, physical exam, medical decision making, and the department course for this patient. I have also personally directed, reviewed, and agree with the discharge instructions and disposition.
[2018-06-12 16:01] VITALS: RESP 20
== END 2018-06-12 16:00 | disposition home or self-care (01) ==
LOC: C.ER 14:23
DX: N39.0 Urinary tract infection, site not specified (principal); Z72.0 Tobacco use

== ENCOUNTER 2018-07-13 04:28 | Emergency (ER) | payer OTHER ==
[2018-07-13 04:28] VITALS: BMI 33.6
[2018-07-13 05:06] LABS: HCG,QUALITATIVE URINE NEGATIVE (NEGATIVE)
[2018-07-13 05:09] LABS: SQUAMOUS EPITHIAL 3 /hpf (0-5); URINE BILIRUBIN NEGATIVE (NEGATIVE); URINE BLOOD NEGATIVE (NEGATIVE); URINE CLARITY Clear (Clear); URINE COLOR Amber (YELLOW); URINE GLUCOSE (UA) NORMAL (Normal); URINE LEUKOCYTE ESTERASE NEG Leu/uL (Negative); URINE PROTEIN NEGATIVE (NEGATIVE)
[2018-07-13] MEDS ORDERED: Naproxen 550 mg Tab PO STA (05:38)
--- NOTE | 2018-07-13 05:44 | C.PDOC ---
History Of Present Illness 33 year old female presents to the ED c/o dysuria, urinary frequency, and bladder pressure. Patient states she has been treated twice in the last month for UTI but her symptoms return. Patient denies fever, chills, nausea, vomit, diarrhea, back pain, abdominal pain, dsyruia, hematuria, rash. Time Seen by Provider: 07/13/18 04:50 Chief Complaint (Nursing): Female Genitourinary History Per: Patient History/Exam Limitations: no limitations Onset/Duration Of Symptoms: Days Current Symptoms Are (Timing): Still Present Quality Of Discomfort: Burning, Pressure Associated Symptoms: Urinary Symptoms. denies: Nausea, Vomiting, Loss Of Appetite Recent travel outside of the [place]: No Additional History Per: Patient Abnormal Vaginal Bleeding: No Past Medical History Reviewed: Historical Data, Nursing Documentation, Vital Signs Vital Signs: Last Vital Signs Temp 97.8 F 07/13/18 04:37 Pulse 97 H 07/13/18 04:37 Resp 18 07/13/18 04:37 BP 126/84 07/13/18 04:37 Pulse Ox 96 07/13/18 04:37 - Medical History PMH: Asthma Surgical History: Hernia Repair Family History: States: Unknown Family Hx - Social History Hx Tobacco Use: Yes Hx Alcohol Use: Yes Hx Substance Use: No - Immunization History Hx Tetanus Toxoid Vaccination: No Hx Influenza Vaccination: No Hx Pneumococcal Vaccination: No Review Of Systems Constitutional: Negative for: Fever, Chills Cardiovascular: Negative for: Chest Pain, Palpitations Respiratory: Negative for: Cough, Shortness of Breath Gastrointestinal: Negative for: Nausea, Vomiting, Abdominal Pain Genitourinary: Positive for: Dysuria, Frequency. Negative for: Vaginal Discharge, Vaginal Bleeding Skin: Negative for: Rash Neurological: Negative for: Weakness, Numbness Physical Exam - Physical Exam Appears: Non-toxic, No Acute Distress Skin: Normal Color, Warm, Dry Head: Atraumatic, Normacephalic Eye(s): bilateral: Normal Inspection Oral Mucosa: Moist Neck: Normal ROM, Supple Chest: Symmetrical Cardiovascular: Rhythm Regular Respiratory: Normal Breath Sounds, No Rales, No Rhonchi, No Wheezing Gastrointestinal/Abdominal: Soft, No Tenderness, No Guarding, No Rebound Back: No CVA Tenderness Pelvic: Other (Refused) Extremity: Normal ROM, No Tenderness, No Swelling Neurological/Psych: Oriented x3, Normal Speech, Normal Cognition Gait: Steady ED Course And Treatment - Laboratory Results Lab Results: Urine Color Patricia (YELLOW) 07/13/18 04:59 Urine Clarity Clear (Clear) 07/13/18 04:59 Urine pH 6.0 (5.0-8.0) 07/13/18 04:59 Ur Specific [place] 1.003 (1.003-1.030) 07/13/18 04:59 Urine Protein Negative mg/dL (NEGATIVE) 07/13/18 04:59 Urine Glucose (UA) Normal mg/dL (Normal) 07/13/18 04:59 Urine Ketones Negative mg/dL (NEGATIVE) 07/13/18 04:59 Urine Blood Negative (NEGATIVE) 07/13/18 04:59 Urine Nitrate Positive (NEGATIVE) H 07/13/18 04:59 Urine Bilirubin Negative (NEGATIVE) 07/13/18 04:59 Urine Urobilinogen 4.0 mg/dL (0.2-1.0) H 07/13/18 04:59 Ur Leukocyte Esterase Neg Ximena/uL (Negative) 07/13/18 04:59 Urine WBC (Auto) 1 /hpf (0-5) 07/13/18 04:59 Urine RBC (Auto) < 1 /hpf (0-3) 07/13/18 04:59 Ur Squamous Epith Cells 3 /hpf (0-5) 07/13/18 04:59 Urine HCG, Qual Negative (NEGATIVE) 07/13/18 04:59 Urine HCG, Qual Negative (NEGATIVE) 07/13/18 04:59 O2 Sat by Pulse Oximetry: 96 (ON RA) Pulse Ox Interpretation: Normal Progress Note: Plan: - Naproxen 550 mg PO. - Macrobid 100 mg PO. - UA. Patient was advised to have CAPACITY MANAGER exam done since her symptoms kept returning. However patient refused to have one due to lack of vaginal complaints. Disposition - Disposition Referrals: [facility] [Outside] Disposition: HOME/ ROUTINE Disposition Time: 05:40 Condition: STABLE Additional Instructions: Please follow up with PMD Increase PO fluids Take medications as prescribe Return to ER if worse Prescriptions: Naproxen [Naprosyn] 1 tab PO BID PRN #20 tab PRN Reason: Pain Nitrofurantoin Macrocrystals [Macrobid] 1 cap PO BID #14 cap Instructions: Urinary Tract Infection, Adult (DC) Forms: [facility] (Vietnamese) - Clinical Impression Clinical Impression: UTI (urinary tract infection) - PA / OVERWEAVER / Resident Statement MD/DO has reviewed & agrees with the documentation as recorded. - Scribe Statement The provider has reviewed the documentation as recorded by the Scribe Omar Martinez All medical record entries made by the Scribe were at my direction and personally dictated by me. I have reviewed the chart and agree that the record accurately reflects my personal performance of the history, physical exam, medical decision making, and the department course for this patient. I have also personally directed, reviewed, and agree with the discharge instructions and disposition.
[2018-07-13] MEDS ORDERED: Naproxen 550 mg Tab PO ONE (05:47)
[2018-07-13 06:08] VITALS: BP 135/86; PULSE 82; RESP 20; TEMP 97.6
[2018-07-15 02:19] VITALS: O2SAT 96
== END 2018-07-13 06:08 | disposition home or self-care (01) ==
LOC: C.ER 04:28
DX: N39.0 Urinary tract infection, site not specified (principal); Z72.0 Tobacco use

== ENCOUNTER 2018-07-15 13:08 | Outpatient (CLI) | payer SELFPAY | END 2018-07-15 13:09 | disposition home or self-care (01) | LOC: C.USIC 13:08 | DX: R30.0 Dysuria (principal) ==